=== PATIENT | female | born 1995 | race Caucasian/White ===

== ENCOUNTER 2020-06-07 17:51 | Emergency (ER) | payer BC ==
--- NOTE | 2020-06-07 18:04 | EDM.PDOC ---
ED HPI GENERAL MEDICAL PROBLEM - General Chief Complaint: Headache Stated Complaint: MIGRAINE Time Seen by Provider: 06/07/20 17:53 Source of Information: Reports: Patient History Limitations: Reports: No Limitations Departure - Discharge Information
[2020-06-07] MEDS ORDERED: Ketorolac 30 MG/ML SDV IVPUSH ONE (18:52)
[2020-06-07] MEDS ORDERED: Ondansetron 4 MG/2 ML SDV IVPUSH ONE (18:52)
[2020-06-07] MEDS ORDERED: Sodium Chloride 0.9% 1,000 ML IV ONE (18:52)
--- NOTE | 2020-06-07 18:55 | EDM.PDOC ---
ED HPI GENERAL MEDICAL PROBLEM - General Chief Complaint: Headache Stated Complaint: MIGRAINE Time Seen by Provider: 06/07/20 17:53 Source of Information: Reports: Patient History Limitations: Reports: No Limitations - History of Present Illness INITIAL COMMENTS - FREE TEXT/NARRATIVE: HISTORY AND PHYSICAL: History of present illness: Patient is a 25-year-old female who presents to the emergency room with complaints of a migraine headache. She states she does typically get migraines and this does feel similar to her previous migraines. This headache started around 3 PM and does have light sensitivity, noise sensitivity and nausea associated with that. She has not taken any hbxq-wve-phuhuyb medication for this. Patient denies any fever, chills, change in vision, syncope or near syncope. Denies any neck pain/stiffness, chest pain, back pain, shortness of breath or cough. Denies any abdominal pain, vomiting, diarrhea, constipation or dysuria. Has not noted any blood in urine or stool. Denies any chance of . Patient has been eating and drinking appropriately. Review of systems: As per history of present illness and below otherwise all systems reviewed and negative. Past medical history: As per history of present illness and as reviewed below otherwise noncontributory. Surgical history: As per history of present illness and as reviewed below otherwise noncontributory. Social history: See social history for further information Family history: As per history of present illness and as reviewed below otherwise noncontributory. Physical exam: General: Well developed and well nourished 5-year-old female. Alert and orientated x 3. Nontoxic in appearance and in no acute distress. Vital signs are stable and have been reviewed by me. Nursing notes were reviewed. HEENT: Atraumatic, normocephalic, pupils equal and reactive bilaterally, negative for conjunctival pallor or scleral icterus, mucous membranes moist, TMs normal bilaterally, throat clear, neck supple, nontender, trachea midline. No drooling or trismus noted. No meningeal signs. No hot potato voice noted. Lungs: Clear to auscultation, breath sounds equal bilaterally, chest nontender. Normal work of breathing, no accessory muscles used. Heart: S1S2, regular rate and rhythm without overt murmur Abdomen: Soft, nondistended, nontender. Skin: Intact, warm, dry. No lesions or rashes noted. Hematologic: No petechiae or purpra. Mucosa appropriate color and normal nail bed color and refill. Extremities: Atraumatic, moves all extremities per self without difficulty or deficits, negative for cords or calf pain. Neurovascular unremarkable. Neuro: Awake, alert, oriented. Cranial nerves II through XII unremarkable. Cerebellum unremarkable. Motor and sensory unremarkable throughout. Exam nonfocal. Psychiatric: Mood and affect are appropriate. Normal thought process. Answering questions appropriately. Notes: We discussed head CT, patient does not describe this as the worst headache of her life. We will hold off on any imaging at this time. Patient feels much improved after the IV medication and fluids. I have spoken with the patient/caregiver and discussed today's findings, in addition to providing specific details for plan of care. The patient is stable for discharge, counseling was provided and we discussed in great detail signs and symptoms that would prompt them to return to the Emergency Department. Medication, follow up and supportive care measures were reviewed and discussed. Voices understanding and is agreeable to plan of care. Denies any further questions or concerns at this time. Diagnostics: None Therapeutics: IV fluid, Toradol, Zofran Prescription: Butalbital No. 6 Impression: Migraine headache Plan: 1. Increase your fluids. Take the remainder of the day to rest in a dark and quiet room. 2. A prescription has been sent to your pharmacy to use at the onset of a migraine headache. Otherwise you can alternate Tylenol and ibuprofen as needed for pain. 3. We encourage you to follow up with your primary care provider and/or recommended specialist in the next few days for re-evaluation and further care/management. If your symptoms should worsen, new symptoms develop or any of the signs and symptoms we discussed should arise please return to the emergency room or call 911 (if needed). Definitive disposition and diagnosis as appropriate pending reevaluation and review of above. headache Pain Score (Numeric/FACES): 8 - Related Data Allergies Allergy/AdvReac Type Severity Reaction Status Date / Time No Known Allergies Allergy Verified 06/07/20 18:54 Home Meds: Home Meds Control 06/07/20 [History] Butalb/Acetaminophen/Caffeine [Ncttvs-Wfdtjtde-Vquw 50-325-40] 1 each PO Q6HR PRN #6 capsule 06/07/20 [Rx] ED ROS GENERAL - Review of Systems Review Of Systems: Comprehensive ROS is negative, except as noted in HPI. - Physical Exam Exam: See Below (See dictation) Course - Vital Signs Last Recorded V/S: Last Vital Signs Temp 98.1 F 06/07/20 18:51 Pulse 80 06/07/20 18:51 Resp 17 06/07/20 18:51 BP 118/52 L 06/07/20 18:51 Pulse Ox 99 06/07/20 18:51 - Orders/Labs/Meds Meds: Medications Discontinued Medications Generic Name Dose Route Start Last Admin Trade Name Freq PRN Reason Stop Dose Admin Sodium Chloride 1,000 mls @ 999 mls/hr 06/07/20 18:52 06/07/20 19:09 Normal Saline IV 06/07/20 19:52 999 mls/hr STAT ONE Administration Ketorolac Tromethamine 30 mg 06/07/20 18:52 06/07/20 19:11 Toradol IVPUSH 06/07/20 18:53 30 mg ONETIME ONE Administration Ondansetron HCl 4 mg 06/07/20 18:52 06/07/20 19:10 Zofran IVPUSH 06/07/20 18:53 4 mg ONETIME ONE Administration Departure - Departure Time of Disposition: 19:49 Disposition: Home, Self-Care 01 Clinical Impression: Migraine - Discharge Information Prescriptions: Butalb/Acetaminophen/Caffeine [Pplcqz-Doiizzhz-Bcmh 50-325-40] 1 each PO Q6HR PRN #6 capsule PRN Reason: migraine Instructions: Migraine Headache, Prab-jz-Nazj Referrals: PCP,Not In Area [Primary Care Provider] - Forms: ED Department Discharge Additional Instructions: The following information is given to patients seen in the emergency department who are being discharged to home. This information is to outline your options for follow-up care. We provide all patients seen in our emergency department with a follow-up referral. The need for follow-up, as well as the timing and circumstances, are variable depending upon the specifics of your emergency department visit. If you don't have a primary care physician on staff, we will provide you with a referral. We always advise you to contact your personal physician following an emergency department visit to inform them of the circumstance of the visit and for follow-up with them and/or the need for any referrals to a consulting specialist. The emergency department will also refer you to a specialist when appropriate. This referral assures that you have the opportunity for follow-up care with a specialist. All of these measure are taken in an effort to provide you with optimal care, which includes your follow-up. Under all circumstances we always encourage you to contact your private physician who remains a resource for coordinating your care. When calling for follow-up care, please make the office aware that this follow-up is from your recent emergency room visit. If for any reason you are refused follow-up, please contact the [facility] at and asked to speak to the emergency department charge nurse. [facility] [address] [place] [id number] [facility] [address] [place] [phone] Thank you for choosing the [facility] emergency department in [place] for your medical needs today. It was a pleasure caring for you. Today you were seen in the emergency department for migraine headache 1. Increase your fluids. Take the remainder of the day to rest in a dark and quiet room. 2. A prescription has been sent to your pharmacy to use at the onset of a migraine headache. Otherwise you can alternate Tylenol and ibuprofen as needed for pain. 3. We encourage you to follow up with your primary care provider and/or recommended specialist in the next few days for re-evaluation and further care/management. If your symptoms should worsen, new symptoms develop or any of the signs and symptoms we discussed should arise please return to the emergency room or call 911 (if needed). Sepsis Event Note (ED) - Focused Exam Vital Signs: Vital Signs Temp Pulse Resp BP Pulse Ox 06/07/20 18:51 98.1 F 80 17 118/52 L 99
== END 2020-06-07 20:14 | disposition home or self-care (01) ==
LOC: MW.ED 17:51
DX: G43.909 Migraine, unspecified, not intractable, without status migrainosus (principal)
CPT/HCPCS: 96361; 96374; 96375; 99283; J1885; J2405; J7030